=== PATIENT | male | born 1945 | race Caucasian/White ===

== ENCOUNTER 2020-10-21 19:38 | Inpatient (IN) ==
[2020-10-21] MEDS ORDERED: FUROSEMIDE 40 MG/4 ML VIAL ONE (20:06)
[2020-10-21] MEDS ORDERED: NITROGLYCERIN 2% OINT 1 INCH/GM PACK TOP ONE (20:06)
[2020-10-21] MEDS ORDERED: NITROGLYCERIN 2% OINT 1 INCH/GM PACK TOP STA (20:23)
[2020-10-21] MEDS ORDERED: FUROSEMIDE 40 MG/4 ML VIAL IV STA (20:23)
[2020-10-21 20:29] LABS: Basophils # 0.1 10*3/uL (0.0-0.2); Basophils % 0.8 % (0.0-0.8); Eosinophils # 0.2 10*3/uL (0.0-0.87); Eosinophils % 1.4 % (0.00-10.9); Hematocrit 46.5 VOL% (42.0-52.0); Hemoglobin 15.2 GM/DL (14.0-18.0); Immature Granulocytes % 0.9 %; Immature Granulocytes Absolute 0.13 #; Lymphocytes # 0.8 10*3/uL (1.4-4.0); Lymphocytes % 5.5 % (21.2-54.2); Mean Corpuscular HGB Conc 32.7 GM/DL (32-36); Mean Corpuscular Volume 93.9 FL (87-102); Mean Platelet Volume 10.2 FL (9.6-12.0); Monocytes % 6.7 % (1.7-12.7); Neutrophils % 84.7 % (38.7-73.9); Platelet Count 414 T/CUMM (130-400); Red Blood Count 4.95 MC/CUMM (3.8-5.5); Red Cell Distribution Width 14.5 % (9.3-17.3); White Blood Count 14.3 T/CUMM (4-12)
[2020-10-21 20:38] LABS: PT Patient Result 10.9 SECS (9.8-11.9)
[2020-10-21 20:40] LABS: Allen Test Positive
[2020-10-21 20:49] LABS: ABG Base Excess -0.9 MMOL/L (-2.5-2.5); ABG HCO3 23.7 MMOL/L (20-26); ABG Oxygen Saturation 99.9 % (95-100); ABG PCO2 64.6 MM HG (35-48); ABG PH 7.253 (7.35-7.45)
[2020-10-21] MEDS ORDERED: ALBUTEROL/IPRATROPIUM 3 ML NEB RESP TX STA (20:56)
[2020-10-21 21:03] LABS: Albumin 3.5 G/DL (3.4-5.0); Calcium 8.3 MG/DL (8.5-10.1); Total Protein 7.8 G/DL (6.4-8.3)
[2020-10-21] MEDS ORDERED: ONDANSETRON 4 MG/2 ML VIAL IV PRN (21:34)
[2020-10-21] MEDS ORDERED: ACETAMINOPHEN 325 MG TABLET PO PRN (21:34)
[2020-10-21 21:58] LABS: Bacteria,Urine Occasional /HPF (Few); Bilirubin,Urine Negative (Negative); Blood, Urine Negative (Negative); Glucose,Urine (UA) >=500 mg/dL (Negative); Hyaline Casts,Urine 8 /LPF (0-3); Ketones,Urine Negative (Negative); Mucus,Urine Occasional /LPF (Occasional); Nitrite,Urine Negative (Negative); Protein,Urine 100 MG/DL; RBC,Urine <1 /HPF (0-4); Squamous Epithelial Cell,Urine Occasional /HPF (0-10); Urine Appearance CLEAR (Clear); Urine Color Yellow (Yellow); Urine Specific Gravity 1.009 (1.001-1.035); Urine Urobilinogen < 2.0 EU/DL (0.2-1.0); WBC,Urine 2 /HPF (0-6)
[2020-10-21] MEDS: FUROSEMIDE 40 MG/4 ML VIAL IV SCH (23:42)
[2020-10-22] MEDS ORDERED: DEXTROSE 50% 25 GM/50 ML VIAL IV PRN (00:49)
[2020-10-22] MEDS ORDERED: GLUCAGON 1 MG VIAL IM PRN (00:49)
[2020-10-22] MEDS: carvediloL 12.5 MG TABLET PO SCH ×4 (01:14→17:35)
[2020-10-22 05:26] LABS: Basophils # 0.1 10*3/uL (0.0-0.2); Basophils % 0.7 % (0.0-0.8); Eosinophils # 0.2 10*3/uL (0.0-0.87); Eosinophils % 1.5 % (0.00-10.9); Hematocrit 40.5 VOL% (42.0-52.0); Hemoglobin 13.3 GM/DL (14.0-18.0); Immature Granulocytes % 0.5 %; Immature Granulocytes Absolute 0.05 #; Lymphocytes # 1.1 10*3/uL (1.4-4.0); Lymphocytes % 9.6 % (21.2-54.2); Mean Corpuscular HGB Conc 32.8 GM/DL (32-36); Mean Corpuscular Volume 94.4 FL (87-102); Monocytes % 10.6 % (1.7-12.7); Neutrophils % 77.1 % (38.7-73.9); Platelet Count 365 T/CUMM (130-400); Red Blood Count 4.29 MC/CUMM (3.8-5.5); Red Cell Distribution Width 14.4 % (9.3-17.3)
[2020-10-22] MEDS: FUROSEMIDE 40 MG/4 ML VIAL IV SCH ×3 (05:50→21:20)
[2020-10-22 05:53] LABS: Calcium 8.3 MG/DL (8.5-10.1); Osmolality,Calculated 285.7 MOS/KG (273-304); Total Protein 6.7 G/DL (6.4-8.3)
[2020-10-22] MEDS ORDERED: NITROGLYCERIN SL 0.4 MG TABLET SL PRN (07:19)
[2020-10-22] MEDS ORDERED: ENOXAPARIN 120 MG/0.8 ML SYRINGE SUBCUT ONE (07:50)
[2020-10-22] MEDS: LOSARTAN 25 MG TABLET PO SCH ×2 (08:21→09:33)
[2020-10-22] MEDS: glipiZIDE 10 MG TABLET PO SCH ×3 (08:21→17:35)
[2020-10-22] MEDS: ASPIRIN 325 MG TABLET PO SCH ×2 (08:21→09:33)
[2020-10-22] MEDS: PANTOPRAZOLE 40 MG TABLET PO SCH ×2 (08:21→09:33)
[2020-10-22] MEDS: cilostazoL 50 MG TABLET PO SCH ×3 (08:39→21:20)
[2020-10-22] MEDS: INSULIN REGULAR 100 UNIT/ML SUBCUT SCH ×4 (08:58→21:18)
[2020-10-22] MEDS ORDERED: SIMVASTATIN 20 MG TABLET PO SCH (09:00)
[2020-10-22 09:25] LABS: Risk Ratio 2.44; VLDL CHOLESTEROL 11.2 MG/DL
[2020-10-22] MEDS: NITROGLYCERIN 2% OINT 1 INCH/GM PACK TOP SCH ×2 (12:53→17:35)
[2020-10-22] MEDS ORDERED: hydrALAZINE 20 MG/1 ML VIAL IV PRN (20:27)
[2020-10-22] MEDS: ROSUVASTATIN 20 MG TABLET PO SCH (21:18)
[2020-10-23] MEDS: NITROGLYCERIN 2% OINT 1 INCH/GM PACK TOP SCH ×4 (00:36→17:08)
[2020-10-23] MEDS: FUROSEMIDE 40 MG/4 ML VIAL IV SCH (06:21)
[2020-10-23 06:29] LABS: Basophils # 0.1 10*3/uL (0.0-0.2); Basophils % 0.8 % (0.0-0.8); Eosinophils # 0.2 10*3/uL (0.0-0.87); Eosinophils % 1.9 % (0.00-10.9); Hematocrit 42.6 VOL% (42.0-52.0); Hemoglobin 14.1 GM/DL (14.0-18.0); Immature Granulocytes % 0.5 %; Immature Granulocytes Absolute 0.06 #; Lymphocytes # 0.9 10*3/uL (1.4-4.0); Lymphocytes % 8.5 % (21.2-54.2); Mean Corpuscular HGB Conc 33.1 GM/DL (32-36); Mean Corpuscular Volume 93.4 FL (87-102); Mean Platelet Volume 10.5 FL (9.6-12.0); Monocytes % 8.2 % (1.7-12.7); Neutrophils % 80.1 % (38.7-73.9); Platelet Count 356 T/CUMM (130-400); Red Blood Count 4.56 MC/CUMM (3.8-5.5); Red Cell Distribution Width 14.1 % (9.3-17.3); White Blood Count 11.1 T/CUMM (4-12)
[2020-10-23 06:45] LABS: Albumin 3.3 G/DL (3.4-5.0); Bilirubin,Total 1.8 MG/DL (0.2-1.0); Calcium 8.9 MG/DL (8.5-10.1); Total Protein 7.1 G/DL (6.4-8.3)
[2020-10-23] MEDS ORDERED: ENOXAPARIN 100 MG/ML SYRINGE SUBCUT ONE (07:18)
[2020-10-23 07:41] LABS: Troponin I 0.932 NG/ML (0.00-0.045)
[2020-10-23] MEDS ORDERED: SODIUM CHLORIDE 0.9% 1,000 ML IV SCH (08:00)
[2020-10-23] MEDS ORDERED: diphenhydrAMINE CAP 25 MG CAPSULE PO ONE (08:05)
[2020-10-23] MEDS ORDERED: DIAZEPAM 5 MG TABLET PO ONE (08:05)
[2020-10-23] MEDS: INSULIN REGULAR 100 UNIT/ML SUBCUT SCH ×4 (08:15→22:17)
[2020-10-23] MEDS: cilostazoL 50 MG TABLET PO SCH ×2 (08:16→20:48)
[2020-10-23] MEDS: ASPIRIN 325 MG TABLET PO SCH (08:16)
[2020-10-23] MEDS: glipiZIDE 10 MG TABLET PO SCH ×2 (08:16→16:06)
[2020-10-23] MEDS: PANTOPRAZOLE 40 MG TABLET PO SCH (08:16)
[2020-10-23] MEDS: amLODIPine 5 MG TABLET PO SCH (08:16)
[2020-10-23] MEDS ORDERED: fentaNYL 100 MCG/2 ML VIAL ONE (09:06)
[2020-10-23] MEDS ORDERED: MIDAZOLAM 2 MG/2 ML VIAL ONE (09:06)
[2020-10-23] MEDS ORDERED: HEPARIN 5,000 UNIT/1 ML VIAL ONE (09:06)
[2020-10-23] MEDS ORDERED: LIDOCAINE 1% 20 ML VIAL ONE ×2 (09:27→09:45)
[2020-10-23] MEDS ORDERED: NIFEdipine 10 MG CAPSULE PO ONE (11:18)
[2020-10-23] MEDS ORDERED: MORPHINE 4 MG/1 ML VIAL IV ONE (12:46)
[2020-10-23] MEDS: ROSUVASTATIN 20 MG TABLET PO SCH (20:48)
[2020-10-24] MEDS: NITROGLYCERIN 2% OINT 1 INCH/GM PACK TOP SCH ×2 (01:33→05:54)
[2020-10-24 05:56] LABS: Basophils % 0.4 % (0.0-0.8); Eosinophils # 0.1 10*3/uL (0.0-0.87); Eosinophils % 1.1 % (0.00-10.9); Hematocrit 36.7 VOL% (42.0-52.0); Hemoglobin 12.4 GM/DL (14.0-18.0); Immature Granulocytes % 0.7 %; Immature Granulocytes Absolute 0.06 #; Lymphocytes # 0.5 10*3/uL (1.4-4.0); Mean Corpuscular HGB Conc 33.8 GM/DL (32-36); Mean Corpuscular Volume 91.5 FL (87-102); Mean Platelet Volume 10.3 FL (9.6-12.0); Monocytes % 10.3 % (1.7-12.7); Neutrophils % 81.5 % (38.7-73.9); Platelet Count 331 T/CUMM (130-400); Red Blood Count 4.01 MC/CUMM (3.8-5.5)
[2020-10-24 06:40] LABS: Albumin 2.7 G/DL (3.4-5.0); Bilirubin,Total 2.4 MG/DL (0.2-1.0); Calcium 8.6 MG/DL (8.5-10.1); Total Protein 6.1 G/DL (6.4-8.3)
[2020-10-24 08:02] VITALS: BP 130/71
[2020-10-24] MEDS: INSULIN REGULAR 100 UNIT/ML SUBCUT SCH (08:16)
[2020-10-24] MEDS: ASPIRIN 325 MG TABLET PO SCH (08:16)
[2020-10-24] MEDS: glipiZIDE 10 MG TABLET PO SCH (08:16)
[2020-10-24] MEDS: amLODIPine 5 MG TABLET PO SCH (08:16)
[2020-10-24] MEDS: cilostazoL 50 MG TABLET PO SCH (08:16)
[2020-10-24] MEDS: PANTOPRAZOLE 40 MG TABLET PO SCH (08:18)
[2020-10-24] MEDS ORDERED: ISOSORBIDE MONONITRATE 30 MG TABLET PO SCH (10:30)
== END 2020-10-24 11:50 | disposition home or self-care (01) | DRG 280 ==
LOC: EDUNIT# → EDBD → N.ED 19:38 → N.EDINP 21:32 → N.TELEN 23:31
PROVIDERS: ADMIT Family Medicine; ATTEND Family Medicine

== ENCOUNTER 2022-01-01 22:24 | Inpatient (IN) ==
[2022-01-01] MEDS ORDERED: ALBUTEROL/IPRATROPIUM 3 ML NEB RESP TX STA (23:01)
[2022-01-01 23:14] LABS: Basophils # 0.1 10*3/uL (0.0-0.2); Basophils % 0.8 % (0.0-0.8); Eosinophils # 0.2 10*3/uL (0.0-0.87); Eosinophils % 1.7 % (0.00-10.9); Hematocrit 49.6 VOL% (42.0-52.0); Hemoglobin 15.9 GM/DL (14.0-18.0); Immature Granulocytes % 0.9 %; Lymphocytes # 0.6 10*3/uL (1.4-4.0); Lymphocytes % 5.2 % (21.2-54.2); Mean Corpuscular HGB Conc 32.1 GM/DL (32-36); Mean Corpuscular Volume 88.1 FL (87-102); Mean Platelet Volume 9.8 FL (9.6-12.0); Monocytes % 7.6 % (1.7-12.7); Neutrophils % 83.8 % (38.7-73.9); Platelet Count 345 T/CUMM (130-400); Red Blood Count 5.63 MC/CUMM (3.8-5.5); Red Cell Distribution Width 14.3 % (9.3-17.3); White Blood Count 10.8 T/CUMM (4-12)
[2022-01-01 23:28] LABS: PT Patient Result 10.9 SECS (10.5-12.0); Partial Thromboplastin Time 27.6 SECS (23.8-32.1)
[2022-01-01 23:32] LABS: Albumin 3.2 G/DL (3.4-5.0); Bilirubin,Total 1.5 MG/DL (0.20-1.00); Calcium 8.8 MG/DL (8.5-10.1); Osmolality,Calculated 285.4 MOS/KG (273-304); Potassium 3.9 MMOL/L (3.5-5.1); Total Protein 7.7 G/DL (6.4-8.2)
[2022-01-02] MEDS ORDERED: cefTRIAXone 1,000 MG in SODIUM CHLORIDE 0.9% 100 ML IV STA (00:11)
[2022-01-02] MEDS ORDERED: INSULIN REGULAR 100 UNIT/ML IV STA (00:12)
[2022-01-02] MEDS ORDERED: ONDANSETRON 4 MG/2 ML VIAL IV PRN (01:04)
[2022-01-02] MEDS ORDERED: GLUCAGON 1 MG VIAL IM PRN (01:04)
[2022-01-02] MEDS ORDERED: ACETAMINOPHEN 325 MG TABLET PO PRN (01:04)
[2022-01-02] MEDS ORDERED: DEXTROSE 10% 250 ML BAG IV PRN (01:04)
[2022-01-02] MEDS ORDERED: hydrALAZINE 20 MG/1 ML VIAL IV STA (01:31)
[2022-01-02] MEDS ORDERED: NITROGLYCERIN SL 0.4 MG TABLET SL PRN (02:30)
[2022-01-02 05:38] LABS: Basophils # 0.1 10*3/uL (0.0-0.2); Basophils % 0.8 % (0.0-0.8); Eosinophils # 0.1 10*3/uL (0.0-0.87); Eosinophils % 1.1 % (0.00-10.9); Hemoglobin 15.2 GM/DL (14.0-18.0); Immature Granulocytes % 0.6 %; Immature Granulocytes Absolute 0.06 #; Lymphocytes # 0.8 10*3/uL (1.4-4.0); Mean Corpuscular HGB Conc 31.7 GM/DL (32-36); Mean Corpuscular Volume 87.4 FL (87-102); Mean Platelet Volume 9.9 FL (9.6-12.0); Monocytes % 10.1 % (1.7-12.7); Neutrophils % 79.4 % (38.7-73.9); Platelet Count 341 T/CUMM (130-400); Red Blood Count 5.49 MC/CUMM (3.8-5.5); Red Cell Distribution Width 14.1 % (9.3-17.3); White Blood Count 10.5 T/CUMM (4-12)
[2022-01-02] MEDS ORDERED: methylPREDNISolone SOD SUC 125 MG/2 ML VIAL IV SCH (06:00)
[2022-01-02 06:03] LABS: Albumin 2.8 G/DL (3.4-5.0); Bilirubin,Total 1.2 MG/DL (0.20-1.00); Calcium 8.9 MG/DL (8.5-10.1); Osmolality,Calculated 274.8 MOS/KG (273-304); Potassium 3.5 MMOL/L (3.5-5.1); Total Protein 6.9 G/DL (6.4-8.2)
[2022-01-02] MEDS: INSULIN REGULAR 100 UNIT/ML SUBCUT SCH ×3 (06:31→18:01)
[2022-01-02] MEDS: DOCUSATE SODIUM 100 MG CAPSULE PO SCH ×2 (08:43→21:15)
[2022-01-02] MEDS: PANTOPRAZOLE 40 MG TABLET PO SCH (08:43)
[2022-01-02] MEDS: ISOSORBIDE MONONITRATE 30 MG TABLET PO SCH (08:43)
[2022-01-02] MEDS: FUROSEMIDE 40 MG TABLET PO SCH ×2 (08:43→16:40)
[2022-01-02] MEDS: glipiZIDE 10 MG TABLET PO SCH ×2 (08:43→21:15)
[2022-01-02] MEDS: cefTRIAXone 1,000 MG in SODIUM CHLORIDE 0.9% 100 ML IV SCH (08:44)
[2022-01-02 08:51] LABS: CKMB % 7.8 %
[2022-01-02 08:55] LABS: High Sensitive Troponin I* 2733.1 ng/L (0-78)
[2022-01-02] MEDS ORDERED: ASPIRIN 325 MG TABLET PO SCH (09:00)
[2022-01-02] MEDS ORDERED: INSULIN GLARGINE 100 UNIT/ML SUBCUT SCH ×2 (09:00→21:00)
[2022-01-02] MEDS ORDERED: carvediloL 6.25 MG TABLET PO SCH (09:00)
[2022-01-02] MEDS: ALBUTEROL/IPRATROPIUM 3 ML NEB RESP TX SCH ×2 (11:01→13:32)
[2022-01-02] MEDS ORDERED: hydrALAZINE 20 MG/1 ML VIAL IV PRN (13:14)
[2022-01-02] MEDS: ENOXAPARIN 100 MG/ML SYRINGE SUBCUT SCH ×2 (13:33→21:15)
[2022-01-02 13:34] LABS: CKMB % 8.2 %; High Sensitive Troponin I* 2040.3 ng/L (0-78)
[2022-01-02 16:36] LABS: CKMB % 6.6 %; High Sensitive Troponin I* 1666.2 ng/L (0-78)
[2022-01-02] MEDS ORDERED: carvediloL 12.5 MG TABLET PO SCH (17:00)
[2022-01-02] MEDS: methylPREDNISolone SOD SUC 40 MG/1 ML VIAL IV SCH (18:02)
[2022-01-02 19:01] LABS: CKMB % 6.4 %; High Sensitive Troponin I* 1822.4 ng/L (0-78)
[2022-01-02] MEDS: ROSUVASTATIN 20 MG TABLET PO SCH (21:15)
[2022-01-02 22:20] LABS: High Sensitive Troponin I* 1629.1 ng/L (0-78)
[2022-01-03] MEDS: INSULIN REGULAR 100 UNIT/ML SUBCUT SCH ×4 (01:02→18:14)
[2022-01-03] MEDS: methylPREDNISolone SOD SUC 40 MG/1 ML VIAL IV SCH ×2 (05:46→18:14)
[2022-01-03 05:48] LABS: Basophils % 0.1 % (0.0-0.8); Hematocrit 44.8 VOL% (42.0-52.0); Hemoglobin 14.4 GM/DL (14.0-18.0); Immature Granulocytes % 0.8 %; Immature Granulocytes Absolute 0.11 #; Lymphocytes # 0.4 10*3/uL (1.4-4.0); Lymphocytes % 2.8 % (21.2-54.2); Mean Corpuscular HGB Conc 32.1 GM/DL (32-36); Mean Corpuscular Volume 86.7 FL (87-102); Mean Platelet Volume 10.5 FL (9.6-12.0); Monocytes % 6.3 % (1.7-12.7); Platelet Count 325 T/CUMM (130-400); Red Blood Count 5.17 MC/CUMM (3.8-5.5); Red Cell Distribution Width 14.1 % (9.3-17.3); White Blood Count 14.4 T/CUMM (4-12)
[2022-01-03 06:26] LABS: Albumin 2.9 G/DL (3.4-5.0); Bilirubin,Total 1.3 MG/DL (0.20-1.00); Calcium 8.9 MG/DL (8.5-10.1); Osmolality,Calculated 281.7 MOS/KG (273-304); Potassium 4.2 MMOL/L (3.5-5.1); Risk Ratio 2.39; Thyroid Stimulating Hormone 0.85 uIU/ml (0.358-3.74); Total Protein 6.9 G/DL (6.4-8.2); VLDL Cholesterol 8.6 MG/DL
[2022-01-03 06:29] LABS: Band Neutrophils 7 % (0-10); Lymphocytes 4 % (20-55); Platelet Estimate Normal; Segmented Neutrophils 80 % (50-85); Total Cells Counted 100
[2022-01-03 06:30] LABS: Anisocytosis Slight
[2022-01-03] MEDS ORDERED: GLUCAGON 1 MG VIAL IM PRN (07:45)
[2022-01-03] MEDS ORDERED: DEXTROSE 50% 25 GM/50 ML VIAL IV PRN (07:45)
[2022-01-03] MEDS ORDERED: NEBIVOLOL 10 MG TABLET PO SCH (09:00)
[2022-01-03] MEDS: DOCUSATE SODIUM 100 MG CAPSULE PO SCH ×2 (10:06→21:54)
[2022-01-03] MEDS: FUROSEMIDE 40 MG TABLET PO SCH ×2 (10:06→16:59)
[2022-01-03] MEDS: glipiZIDE 10 MG TABLET PO SCH ×2 (10:06→21:54)
[2022-01-03] MEDS: ISOSORBIDE MONONITRATE 30 MG TABLET PO SCH (10:07)
[2022-01-03] MEDS: PANTOPRAZOLE 40 MG TABLET PO SCH (10:07)
[2022-01-03] MEDS: LOSARTAN 50 MG TABLET PO SCH (10:09)
[2022-01-03] MEDS: cefTRIAXone 1,000 MG in SODIUM CHLORIDE 0.9% 100 ML IV SCH (10:09)
[2022-01-03] MEDS: ROSUVASTATIN 20 MG TABLET PO SCH (21:53)
[2022-01-03] MEDS: ASPIRIN EC 81 MG TABLET PO SCH (21:54)
[2022-01-03] MEDS: ALBUTEROL/IPRATROPIUM 3 ML NEB RESP TX SCH (22:53)
[2022-01-04] MEDS: INSULIN REGULAR 100 UNIT/ML SUBCUT SCH ×5 (00:44→23:22)
[2022-01-04] MEDS: ALBUTEROL/IPRATROPIUM 3 ML NEB RESP TX SCH ×4 (02:53→20:15)
[2022-01-04] MEDS: methylPREDNISolone SOD SUC 40 MG/1 ML VIAL IV SCH ×2 (05:36→18:09)
[2022-01-04 06:07] LABS: Basophils % 0.2 % (0.0-0.8); Hematocrit 46.6 VOL% (42.0-52.0); Hemoglobin 14.9 GM/DL (14.0-18.0); Immature Granulocytes Absolute 0.19 #; Lymphocytes # 0.5 10*3/uL (1.4-4.0); Lymphocytes % 2.9 % (21.2-54.2); Mean Corpuscular Volume 86.9 FL (87-102); Mean Platelet Volume 10.2 FL (9.6-12.0); Monocytes % 6.1 % (1.7-12.7); Neutrophils % 89.8 % (38.7-73.9); Platelet Count 338 T/CUMM (130-400); Red Blood Count 5.36 MC/CUMM (3.8-5.5); Red Cell Distribution Width 14.2 % (9.3-17.3); White Blood Count 18.8 T/CUMM (4-12)
[2022-01-04 06:29] LABS: Bilirubin,Total 1.3 MG/DL (0.20-1.00); Calcium 9.1 MG/DL (8.5-10.1); Osmolality,Calculated 280.5 MOS/KG (273-304); Total Protein 7.1 G/DL (6.4-8.2)
[2022-01-04 06:30] LABS: Lymphocytes 3 % (20-55); Platelet Estimate Adequate; Segmented Neutrophils 89 % (50-85); Total Cells Counted 100
[2022-01-04] MEDS: FUROSEMIDE 40 MG TABLET PO SCH ×2 (08:55→15:09)
[2022-01-04] MEDS: glipiZIDE 10 MG TABLET PO SCH ×2 (08:56→21:09)
[2022-01-04] MEDS: NEBIVOLOL 5 MG TABLET PO SCH (08:57)
[2022-01-04] MEDS: ISOSORBIDE MONONITRATE 30 MG TABLET PO SCH (08:57)
[2022-01-04] MEDS: LOSARTAN 50 MG TABLET PO SCH (08:57)
[2022-01-04] MEDS: PANTOPRAZOLE 40 MG TABLET PO SCH (08:58)
[2022-01-04] MEDS: cefTRIAXone 1,000 MG in SODIUM CHLORIDE 0.9% 100 ML IV SCH (09:09)
[2022-01-04] MEDS: DOCUSATE SODIUM 100 MG CAPSULE PO SCH ×2 (10:02→21:09)
[2022-01-04] MEDS ORDERED: ALBUTEROL/IPRATROPIUM 3 ML NEB RESP TX PRN (10:42)
[2022-01-04] MEDS: ROSUVASTATIN 20 MG TABLET PO SCH (21:09)
[2022-01-04] MEDS: ASPIRIN EC 81 MG TABLET PO SCH (21:09)
[2022-01-05] MEDS: ALBUTEROL/IPRATROPIUM 3 ML NEB RESP TX SCH ×3 (01:49→19:15)
[2022-01-05] MEDS: methylPREDNISolone SOD SUC 40 MG/1 ML VIAL IV SCH ×2 (05:33→18:50)
[2022-01-05 05:35] LABS: Basophils % 0.3 % (0.0-0.8); Eosinophils % 0.1 % (0.00-10.9); Hematocrit 45.5 VOL% (42.0-52.0); Hemoglobin 14.5 GM/DL (14.0-18.0); Immature Granulocytes % 0.6 %; Immature Granulocytes Absolute 0.09 #; Lymphocytes # 0.7 10*3/uL (1.4-4.0); Lymphocytes % 4.6 % (21.2-54.2); Mean Corpuscular HGB Conc 31.9 GM/DL (32-36); Mean Corpuscular Volume 87.7 FL (87-102); Monocytes % 9.4 % (1.7-12.7); Platelet Count 339 T/CUMM (130-400); Red Blood Count 5.19 MC/CUMM (3.8-5.5); Red Cell Distribution Width 14.2 % (9.3-17.3); White Blood Count 15.2 T/CUMM (4-12)
[2022-01-05] MEDS: INSULIN REGULAR 100 UNIT/ML SUBCUT SCH ×4 (05:51→23:50)
[2022-01-05 05:57] LABS: Calcium 9.3 MG/DL (8.5-10.1); Osmolality,Calculated 282.2 MOS/KG (273-304); Potassium 4.1 MMOL/L (3.5-5.1)
[2022-01-05 06:12] LABS: Eosinophils 1 % (0-10); Lymphocytes 5 % (20-55); Metamyelocytes 1 %; Segmented Neutrophils 86 % (50-85); Total Cells Counted 100
[2022-01-05 06:15] LABS: Platelet Estimate Normal
[2022-01-05 06:16] LABS: Hypochromia Slight
[2022-01-05] MEDS: FUROSEMIDE 40 MG TABLET PO SCH ×2 (09:04→17:33)
[2022-01-05] MEDS: LOSARTAN 50 MG TABLET PO SCH (09:04)
[2022-01-05] MEDS: NEBIVOLOL 5 MG TABLET PO SCH (09:04)
[2022-01-05] MEDS: glipiZIDE 10 MG TABLET PO SCH ×2 (09:04→21:27)
[2022-01-05] MEDS: PANTOPRAZOLE 40 MG TABLET PO SCH (09:04)
[2022-01-05] MEDS: ISOSORBIDE MONONITRATE 30 MG TABLET PO SCH (09:04)
[2022-01-05] MEDS: cefTRIAXone 1,000 MG in SODIUM CHLORIDE 0.9% 100 ML IV SCH (09:05)
[2022-01-05] MEDS: DOCUSATE SODIUM 100 MG CAPSULE PO SCH ×2 (09:10→21:27)
[2022-01-05] MEDS: ASPIRIN EC 81 MG TABLET PO SCH (21:27)
[2022-01-05] MEDS: ROSUVASTATIN 20 MG TABLET PO SCH (21:27)
[2022-01-06] MEDS: ALBUTEROL/IPRATROPIUM 3 ML NEB RESP TX SCH ×4 (00:19→13:31)
[2022-01-06] MEDS: INSULIN REGULAR 100 UNIT/ML SUBCUT SCH ×2 (05:53→11:56)
[2022-01-06] MEDS: methylPREDNISolone SOD SUC 40 MG/1 ML VIAL IV SCH (06:02)
[2022-01-06 06:42] LABS: Basophils % 0.2 % (0.0-0.8); Eosinophils % 0.2 % (0.00-10.9); Hematocrit 46.2 VOL% (42.0-52.0); Hemoglobin 14.8 GM/DL (14.0-18.0); Immature Granulocytes % 0.7 %; Immature Granulocytes Absolute 0.09 #; Lymphocytes # 0.7 10*3/uL (1.4-4.0); Lymphocytes % 5.6 % (21.2-54.2); Mean Corpuscular Volume 85.9 FL (87-102); Mean Platelet Volume 10.6 FL (9.6-12.0); Monocytes % 8.9 % (1.7-12.7); Neutrophils % 84.4 % (38.7-73.9); Platelet Count 336 T/CUMM (130-400); Red Blood Count 5.38 MC/CUMM (3.8-5.5); Red Cell Distribution Width 14.1 % (9.3-17.3)
[2022-01-06 07:05] LABS: Calcium 8.9 MG/DL (8.5-10.1); Osmolality,Calculated 285.2 MOS/KG (273-304)
[2022-01-06] MEDS: DOCUSATE SODIUM 100 MG CAPSULE PO SCH (09:30)
[2022-01-06] MEDS: glipiZIDE 10 MG TABLET PO SCH (09:30)
[2022-01-06] MEDS: PANTOPRAZOLE 40 MG TABLET PO SCH (09:30)
[2022-01-06] MEDS: ISOSORBIDE MONONITRATE 30 MG TABLET PO SCH (09:30)
[2022-01-06] MEDS: cefTRIAXone 1,000 MG in SODIUM CHLORIDE 0.9% 100 ML IV SCH (09:30)
[2022-01-06] MEDS: FUROSEMIDE 40 MG TABLET PO SCH (09:30)
[2022-01-06] MEDS: LOSARTAN 50 MG TABLET PO SCH (09:30)
[2022-01-06 11:48] VITALS: BP 123/78
== END 2022-01-06 14:50 | disposition home or self-care (01) | DRG 202 ==
LOC: N.ED 22:24 → N.EDINP 01-02 00:30 → N.3E 01-02 02:00
PROVIDERS: ADMIT Family Medicine; ATTEND Family Medicine